=== PATIENT | male | born 1995 | race Two or more races ===

== ENCOUNTER 2023-05-29 14:35 | Emergency (ER) | payer SELFPAY ==
[~2023-05-29] VITALS: Ht 165.1 cm; Wt 48.1 kg
[2023-05-29] MEDS ORDERED: ACETAMINOPHEN 500 MG TAB PO ONE (15:00)
[2023-05-29] MEDS ORDERED: ACETAMINOPHEN 325 MG TAB PO ONE (15:00)
[2023-05-29] MEDS ORDERED: SODIUM CHLORIDE 0.9% 1,000 ML IV ONE ×2 (15:00→19:45)
[2023-05-29] MEDS ORDERED: ONDANSETRON ODT 4 MG TAB PO ONE (15:00)
[2023-05-29 15:33] LABS: Basophils # (auto) 0 10 ^3/uL (0-0.2); Eosinophils # (auto) 0.2 10 ^3/uL (0-0.8); Neutrophils # (auto) 4.1 10 ^3/uL (1.6-8.6); White Blood Cell 5.2 10^3/uL (4.4-10.8)
[2023-05-29 15:34] LABS: Basophils % (auto) 0.2 % (0.0-2.0); Hematocrit 37.8 % (41.0-53.0); Hemoglobin 12.4 g/dL (13.5-17.5); Lymphocytes # (auto) 0.5 10 ^3/uL (0.4-5.4); Lymphocytes % (auto) 8.8 % (10.0-50.0); Mean Corpuscular Hgb Conc. 32.7 g/dL (32.0-36.0); Mean Corpuscular Volume 76.4 fL (80.0-100.0); Monocytes # (auto) 0.5 10 ^3/uL (0-1.3); Monocytes % (auto) 8.8 % (0.0-12.0); Neutrophils % (auto) 79.2 % (37.0-80.0); Red Blood Cells 4.95 10^6/uL (4.5-5.90); Red Cell Distribution Width 13.3 % (11.8-14.3)
[2023-05-29 15:53] LABS: Albumin 3.6 g/dL (3.4-5.0); Calcium 8.7 mg/dL (8.5-10.1); Potassium 3.8 mmol/L (3.5-5.1)
[2023-05-29 15:57] LABS: BUN/Creatinine Ratio 14.9 (10.0-20.0); Bilirubin, Total 0.4 mg/dL (0.2-1.0); Total Protein 7.4 g/dL (6.4-8.2)
[2023-05-29] MEDS ORDERED: cefTRIAXone SODIUM 250 MG VL IM ONE (16:45)
[2023-05-29] MEDS ORDERED: AZITHROMYCIN 250 MG TAB PO ONE (16:45)
[2023-05-29 18:20] LABS: Urine Bacteria NONE SEEN /hpf (None Seen); Urine WBC 1 /hpf (0 - 3)
[2023-05-29 18:41] LABS: Urine Blood Negative /uL (Negative); Urine Clarity CLEAR (Clear); Urine Color Straw (Yellow); Urine Protein, UAD Trace (Negative); Urine Urobilinogen Normal (Negative); Urine pH 5 (5.0-8.0)
[2023-05-29] MEDS ORDERED: IBUP-1454 PO (19:18)
[2023-05-29 19:35] VITALS: RESP 18; TEMP 98.2; O2SAT 99
[2023-05-29 20:36] VITALS: BP 94/60; PULSE 81
[2023-06-02 10:07] LABS: Chlamydia Trachomatis, NAA Negative (Negative); Neisseria gonorrhoeae, NAA Negative (Negative)
== END 2023-05-29 20:37 | disposition home or self-care (01) ==
LOC: ER 14:38
DX: R30.0 Dysuria (principal); R50.9 Fever, unspecified; R11.2 Nausea with vomiting, unspecified; Z88.1 Allergy status to other antibiotic agents
CPT/HCPCS: 36415; 80053; 81001; 83605; 83690; 85025; 87040; 87491; 87591; 96360; 96361; 96372; 99284; J0696; J7030; Q0162